=== PATIENT | female | born 1970 | race Caucasian/White ===

== ENCOUNTER 2019-09-13 17:22 | Emergency (ER) | payer SELFPAY ==
[2019-09-13] MEDS ORDERED: Metoprolol Tartrate 50 MG Tab PO ONE (17:59)
--- NOTE | 2019-09-13 18:49 | EDM.PDOC ---
ED HPI GENERAL MEDICAL PROBLEM - General Chief Complaint: Cardiovascular Problem Stated Complaint: HIGH BP Time Seen by Provider: 09/13/19 17:38 Source of Information: Reports: Patient History Limitations: Reports: No Limitations - History of Present Illness INITIAL COMMENTS - FREE TEXT/NARRATIVE: The patient was sent over from the walk in clinic for a headache and elevated blood pressure. She saw her doctor in July and her blood pressure was doing good so she took her off her medication. She developed a headache 2 days ago. She went to the walk in clinic and her BP was 200/100. She also has some tightness in her chest. She has some tingling in the right arm but she will get that at times. 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 She has no fever, chills, cough, congestion, runny nose, blurred vision or double vision. She has no other health problems. She has no abdominal pain, nausea or vomiting. She has no numbness or weakness. Onset: Gradual Duration: Day(s): Location: Reports: Head, Chest Quality: Reports: Pressure Severity: Mild Improves with: Reports: None Worsens with: Reports: None Associated Symptoms: Reports: Chest Pain, Headaches. Denies: Cough, Fever/ Chills, Nausea/Vomiting, Shortness of Breath Frontal Headache Pain Score (Numeric/FACES): 7 - Related Data Allergies Allergy/AdvReac Type Severity Reaction Status Date / Time No Known Allergies Allergy Verified 09/13/19 17:40 Home Meds: Home Meds Doxycycline [Vibramycin] 50 mg PO BID 09/13/19 [History] Metoprolol Succinate 50 mg PO DAILY #30 tab.er.24h 09/13/19 [Rx] traZODone HCl [Trazodone HCl] 100 mg PO BEDTIME PRN 09/13/19 [History] Past Medical History Neurological History: Reports: Other (See Below) Other Neuro History: insomnnia- Other Dermatologic History: roseia Social & Family History - Tobacco Use Smoking Status *Q: Never Smoker - Caffeine Use Caffeine Use: Reports: Coffee - Recreational Drug Use Recreational Drug Use: No ED ROS GENERAL - Review of Systems Review Of Systems: See Below Constitutional: Reports: No Symptoms HEENT: Reports: No Symptoms Respiratory: Reports: No Symptoms Cardiovascular: Reports: Chest Pain Endocrine: Reports: No Symptoms GI/Abdominal: Reports: No Symptoms : Reports: No Symptoms Musculoskeletal: Reports: No Symptoms Neurological: Reports: Headache ED EXAM, GENERAL - Physical Exam Exam: See Below Exam Limited By: No Limitations General Appearance: Alert, No Apparent Distress Ears: Normal External Exam Nose: Normal Inspection Head: Atraumatic, Normocephalic Neck: Normal Inspection, Supple, Non-Tender Respiratory/Chest: No Respiratory Distress, Lungs Clear, Normal Breath Sounds Cardiovascular: Regular Rate, Rhythm, No Edema, No Murmur GI/Abdominal: Soft, Non-Tender, No Organomegaly, No Mass Back Exam: Normal Inspection Extremities: Normal Inspection EKG INTERPRETATION EKG Date: 09/13/19 Time: 18:10 Rhythm: NSR Rate (Beats/Min): 71 [place]: Normal P-Wave: Present QRS: Normal ST-T: Normal QT: Normal EKG Interpretation Comments: Q waves in the anterior leads Course - Vital Signs Last Recorded V/S: Last Vital Signs Temp 98.1 F 09/13/19 17:44 Pulse 71 09/13/19 18:11 Resp 20 09/13/19 17:44 BP 196/114 H 09/13/19 18:11 Pulse Ox 98 09/13/19 17:44 - Orders/Labs/Meds Orders: Active Orders 24 hr Category Date Time Status Cardiac Monitoring [RC] . DIRECTED Care 09/13/19 17:58 Active EKG Documentation Completion [RC] STAT Care 09/13/19 17:59 Active Labs: Laboratory Tests 09/13/19 09/13/19 Range/Units 18:05 18:06 WBC 5.50 (3.98-10.04) K/mm3 RBC 4.73 (3.98-5.22) M/mm3 Hgb 14.8 (11.2-15.7) gm/dl Hct 43.4 (34.1-44.9) % MCV 91.8 (79.4-94.8) fl MCH 31.3 (25.6-32.2) pg MCHC 34.1 (32.2-35.5) g/dl RDW Std Deviation 40.1 (36.4-46.3) fL Plt Count 253 (182-369) K/mm3 MPV 9.6 (9.4-12.3) fl Neut % (Auto) 58.5 (34.0-71.1) % Lymph % (Auto) 25.3 (19.3-51.7) % [place] % (Auto) 10.5 (4.7-12.5) % Eos % (Auto) 4.4 (0.7-5.8) Baso % (Auto) 1.1 (0.1-1.2) % Neut # (Auto) 3.22 (1.56-6.13) K/mm3 Lymph # (Auto) 1.39 (1.18-3.74) K/mm3 [place] # (Auto) 0.58 H (0.24-0.36) K/mm3 Eos # (Auto) 0.24 (0.04-0.36) K/mm3 Baso # (Auto) 0.06 (0.01-0.08) K/mm3 Sodium 140 (136-145) mEq/L Potassium 3.6 (3.5-5.1) mEq/L Chloride 100 (98-107) mEq/L Carbon Dioxide 29 (21-32) mEq/L Anion Gap 14.6 (5-15) BUN 14 (7-18) mg/dL Creatinine 0.7 (0.55-1.02) mg/dL Est Cr Clr Drug Dosing 76.89 mL/min Estimated GFR (MDRD) > 60 (>60) mL/min BUN/Creatinine Ratio 20.0 H (14-18) Glucose 97 (74-106) mg/dL Calcium 9.7 (8.5-10.1) mg/dL Total Bilirubin 0.4 (0.2-1.0) mg/dL AST 25 (15-37) U/L ALT 45 (14-59) U/L Alkaline Phosphatase 72 (46-116) U/L Troponin I < 0.017 (0.00-0.056) ng/mL Total Protein 7.7 (6.4-8.2) g/dl Albumin 4.1 (3.4-5.0) g/dl Globulin 3.6 gm/dL Albumin/Globulin Ratio 1.1 (1-2) Meds: Medications Discontinued Medications Generic Name Dose Route Start Last Admin Trade Name Freq PRN Reason Stop Dose Admin Metoprolol Tartrate 50 mg 09/13/19 17:59 09/13/19 18:11 Lopressor PO 09/13/19 18:00 50 mg ONETIME ONE Administration - Re-Assessments/Exams Free Text/Narrative Re-Assessment/Exam: 09/13/19 18:49 I ordered metoprolol 50mg PO, EKG, CT of her head and labs. 09/13/19 18:56 Her CBC and CMP look good. Her troponin is negative. The CT of her head looks good. Her blood pressure is better. I will get her on metoprolol succinate. Departure - Departure Time of Disposition: 19:00 Disposition: Home, Self-Care 01 Condition: Good Clinical Impression: Atypical chest pain Hypertension Qualifiers: Hypertension type: essential hypertension Qualified Code(s): I10 - Essential ( primary) hypertension Headache Qualifiers: Headache type: unspecified Headache chronicity pattern: acute headache Intractability: not intractable Qualified Code(s): R51 - Headache Prescriptions: Metoprolol Succinate 50 mg PO DAILY #30 tab.er.24h Referrals: Tasneem Morataya PA-C [Primary Care Provider] - 1 Week Forms: ED Department Discharge Additional Instructions: Take the metoprolol daily. Take tylenol or motrin for the headache. Please return if you are worse. Sepsis Event Note - Evaluation Sepsis Screening Result: No Definite Risk - Focused Exam Vital Signs: Vital Signs Temp Pulse Pulse Resp BP BP Pulse Ox 09/13/19 18:11 71 196/114 H 09/13/19 17:44 98.1 F 68 20 186/107 H 98 Date Exam was Performed: 09/13/19 Time Exam was Performed: 18:56 - My Orders Last 24 Hours: My Active Orders 09/13/19 17:58 Cardiac Monitoring [RC] . DIRECTED 09/13/19 17:59 EKG Documentation Completion [RC] STAT - Assessment/Plan Last 24 Hours: My Active Orders 09/13/19 17:58 Cardiac Monitoring [RC] . DIRECTED 09/13/19 17:59 EKG Documentation Completion [RC] STAT
--- NOTE | 2019-09-13 18:51 | CT ---
Head CT Technique: Multiple axial sections through the brain were obtained. Intravenous contrast was not utilized. Comparison: No prior intracranial imaging is available. Findings: Ventricles along with basal cisterns and sulci the convexities appear within normal limits for the patient's age. No abnormal parenchymal densities are seen. No evidence of intracranial hemorrhage. No midline shift or mass effect is seen. Bone window settings were reviewed. Mastoid sinuses show nothing acute. Visualized paranasal sinuses show nothing acute. No acute calvarial abnormality is appreciated. Impression: 1. Nothing acute is appreciated on noncontrast head CT study. Diagnostic code #1 This report was dictated in [place] Standard Time
== END 2019-09-13 19:14 | disposition home or self-care (01) ==
LOC: SUPCPDRO 17:22 → JD.ED 17:22
DX: R07.89 Other chest pain (principal); I10 Essential (primary) hypertension; R51 Headache
CPT/HCPCS: 36415; 70450; 80053; 84484; 85025; 93005; 99284; A9270; 93010

== ENCOUNTER 2021-08-30 22:52 | Emergency (ER) | payer BC, OTHER ==
[2021-08-30] MEDS ORDERED: Aspirin 81 MG Tab.Chew PO ONE (23:08)
[2021-08-30] MEDS ORDERED: Sodium Chloride 0.9% 10 ML Syringe FLUSH PRN (23:08)
--- NOTE | 2021-08-31 00:29 | EDM.PDOC ---
ED HPI GENERAL MEDICAL PROBLEM - General Chief Complaint: Chest Pain Stated Complaint: CHEST PAIN/HIGH BLOOD PRESSURE Time Seen by Provider: 08/30/21 23:45 Source of Information: Reports: Patient History Limitations: Reports: No Limitations - History of Present Illness INITIAL COMMENTS - FREE TEXT/NARRATIVE: This 51-year-old female with a history of high blood pressure presenting with a chief complaint of chest pain. Onset of chest pain was approximately 1 hour prior to arrival. Patient states the pain was in the middle of her chest and described as a pounding sensation. She was also feeling some pounding in her head. Onset was at rest. She denies any symptoms over the past few days. And is generally been feeling well. After the symptoms started, she checked her blood pressure and found to be extremely high. She took a dose of her metoprolol extended release which she does not take on a regular basis. She now feels symptoms are mostly subsided. Chest Pain Score (Numeric/FACES): 6 - Related Data Allergies Allergy/AdvReac Type Severity Reaction Status Date / Time No Known Allergies Allergy Verified 08/30/21 23:05 Home Meds: Home Meds Metoprolol Succinate 50 mg PO DAILY #30 tab.er.24h 09/13/19 [Rx] Past Medical History Cardiovascular History: Reports: Hypertension [employer]ST History: Reports: Neurological History: Reports: Other (See Below) Other Neuro History: insomnnia- Other Dermatologic History: roseia - Infectious Disease History Infectious Disease History: Reports: Novel Coronavirus - Past Surgical History Female Surgical History: Reports: Hysterectomy Social & Family History - Tobacco Use Tobacco Use Status *Q: Never Tobacco User Second Hand Smoke Exposure: No - Caffeine Use Caffeine Use: Reports: Coffee - Recreational Drug Use Recreational Drug Use: No ED ROS GENERAL - Review of Systems Review Of Systems: See Below Free Text/Narrative/Comment: In addition to that documented in the HPI above, the additional ROS was obtained: Constitutional: Denies fevers or chills Eyes: Denies vision changes ENMT: Denies sore throat CV: Per HPI Resp: Denies SOB GI: Denies vomiting or diarrhea : Denies painful urination MSK: Denies recent trauma Skin: Denies new rashes Neuro: Denies new numbness or tingling or weakness Endocrine: Denies unexpected weight loss Heme: Denies bleeding disorders ED EXAM, GENERAL - Physical Exam Exam: See Below Free Text/Narrative:: I have reviewed the triage vital signs Const: Well nourished, well developed, appears stated age Eyes: Pupils Equal and reactive to light bilaterally, no conjunctival injection HENT: No signs of trauma or swelling, Neck supple without meningismus CV: Regular Rate Rhythm, Warm, well-perfused extremities RESP: Unlabored respiratory effort MSK: No gross deformities appreciated Skin: Warm, dry. No rashes Neuro: Alert, chemist food II-XII grossly intact. Sensation and motor function of extremities grossly intact. Psych: Appropriate mood and affect. #1 Interpretation EKG Date: 08/30/21 Time: 23:25 Rhythm: NSR Rate (Beats/Min): 84 [place]: Normal P-Wave: Present QRS: Normal ST-T: Other (Q waves present in leads III, aVF, V3 through V6.) QT: Normal Comparison: No Change EKG Interpretation Comments: Abnormal EKG. No change from prior. Course - Vital Signs Last Recorded V/S: Last Vital Signs Temp 36.1 C 08/30/21 23:03 Pulse 80 08/30/21 23:03 Resp 18 08/30/21 23:03 BP 193/103 H 08/30/21 23:03 Pulse Ox 99 08/30/21 23:03 - Orders/Labs/Meds Orders: Active Orders 24 hr Category Date Time Status Cardiac Monitoring [RC] . DIRECTED Care 08/30/21 23:08 Active Communication Order [RC] ASDIRECTED Care 08/30/21 23:08 Active Communication Order [RC] ASDIRECTED Care 08/30/21 23:08 Active Oxygen Therapy [RC] ASDIRECTED Care 08/30/21 23:08 Active Peripheral IV Care [RC] . DIRECTED Care 08/30/21 23:09 Active Chest 1V Frontal [CR] Stat Exams 08/30/21 23:08 Taken Sodium Chloride 0.9% [Saline Flush] Med 08/30/21 23:08 Active 10 ml FLUSH ASDIRECTED PRN Peripheral IV Insertion Adult [OM.PC] Stat Oth 08/30/21 23:08 Ordered Medication Orders Sodium Chloride (Sodium Chloride 0.9% 10 Ml Syringe) 10 ml FLUSH ASDIRECTED PRN PRN Reason: Keep Vein Open Labs: Laboratory Tests 08/30/21 08/30/2121 Range/Units 23:38 23:38 23:53 WBC 5.45 (3.98-10.04) K/mm3 RBC 4.41 (3.98-5.22) M/mm3 Hgb 14.4 (11.2-15.7) gm/dl Hct 43.0 (34.1-44.9) % MCV 97.5 H D (79.4-94.8) fl MCH 32.7 H (25.6-32.2) pg MCHC 33.5 (32.2-35.5) g/dl RDW Std Deviation 41.6 (36.4-46.3) fL Plt Count 225 (182-369) K/mm3 MPV 9.8 (9.4-12.3) fl Neut % (Auto) 51.0 (34.0-71.1) % Lymph % (Auto) 31.9 (19.3-51.7) % [place] % (Auto) 9.5 (4.7-12.5) % Eos % (Auto) 5.9 H (0.7-5.8) Baso % (Auto) 1.5 H (0.1-1.2) % Neut # (Auto) 2.78 (1.56-6.13) K/mm3 Lymph # (Auto) 1.74 (1.18-3.74) K/mm3 [place] # (Auto) 0.52 H (0.24-0.36) K/mm3 Eos # (Auto) 0.32 (0.04-0.36) K/mm3 Baso # (Auto) 0.08 (0.01-0.08) K/mm3 PT 9.8 (9.7-12.0) SECONDS INR < 0.93 Sodium 140 (136-145) mEq/L Potassium 3.7 (3.5-5.1) mEq/L Chloride 101 (98-107) mEq/L Carbon Dioxide 25 (21-32) mEq/L Anion Gap 17.7 H (5-15) BUN 9 (7-18) mg/dL Creatinine 0.6 (0.55-1.02) mg/dL Est Cr Clr Drug Dosing 87.73 mL/min Estimated GFR (MDRD) > 60 (>60) mL/min BUN/Creatinine Ratio 15.0 (14-18) Glucose 109 H (70-99) mg/dL Calcium 8.2 L D (8.5-10.1) mg/dL Magnesium 1.7 L (1.8-2.4) mg/dL Total Bilirubin 0.3 (0.2-1.0) mg/dL AST 57 H (15-37) U/L ALT 88 H (14-59) U/L Alkaline Phosphatase 111 (46-116) U/L Troponin I < 0.017 (0.00-0.056) ng/mL Total Protein 7.0 (6.4-8.2) g/dl Albumin 3.6 (3.4-5.0) g/dl Globulin 3.4 gm/dL Albumin/Globulin Ratio 1.1 (1-2) Meds: Medications Generic Name Dose Route Start Last Admin Trade Name Freq PRN Reason Stop Dose Admin Sodium Chloride 10 ml 08/30/21 23:08 Sodium Chloride 0.9% 10 Ml Syringe FLUSH ASDIRECTED PRN Keep Vein Open Discontinued Medications Generic Name Dose Route Start Last Admin Trade Name Freq PRN Reason Stop Dose Admin Aspirin 324 mg 08/30/21 23:08 08/30/21 23:34 Aspirin 81 Mg Tab.Chew PO 08/30/21 23:09 324 mg ONETIME ONE Administration Departure - Departure Time of Disposition: 00:28 Disposition: Home, Self-Care 01 Clinical Impression: Chest pain Instructions: Nonspecific Chest Pain, Adult Forms: ED Department Discharge Additional Instructions: Please follow-up with your primary care physician as soon as possible for blood pressure management. You should return to the emergency room should symptoms return or you have any other emergent concerns. Sepsis Event Note (ED) - Focused Exam Vital Signs: Vital Signs Temp Pulse Resp BP Pulse Ox 08/30/21 23:03 36.1 C 80 18 193/103 H 99 - My Orders Last 24 Hours: My Active Orders 08/30/21 23:08 Cardiac Monitoring [RC] . DIRECTED Communication Order [RC] ASDIRECTED Communication Order [RC] ASDIRECTED Oxygen Therapy [RC] ASDIRECTED Chest 1V Frontal [CR] Stat Sodium Chloride 0.9% [Saline Flush] 10 ml FLUSH ASDIRECTED PRN Peripheral IV Insertion Adult [OM.PC] Stat 08/30/21 23:09 Peripheral IV Care [RC] . DIRECTED - Assessment/Plan Last 24 Hours: My Active Orders 08/30/21 23:08 Cardiac Monitoring [RC] . DIRECTED Communication Order [RC] ASDIRECTED Communication Order [RC] ASDIRECTED Oxygen Therapy [RC] ASDIRECTED Chest 1V Frontal [CR] Stat Sodium Chloride 0.9% [Saline Flush] 10 ml FLUSH ASDIRECTED PRN Peripheral IV Insertion Adult [OM.PC] Stat 08/30/21 23:09 Peripheral IV Care [RC] . DIRECTED Assessment:: Patient is a 51-year-old female presented to the emergency room with chest pain. Patient had unremarkable ER course. Initial EKG is abnormal but unchanged from prior. Broad differential diagnosis considered for this patient include pulmonary embolism, ACS, aortic dissection. Initial laboratory studies do not demonstrate a significantly abnormal. Patient has no major PE risk factors. Suspicion for PE is extremely low. No evidence of widened mediastinum or focal abnormalities on patient's chest x-ray. I informed her of these results and recommended repeat troponin and EKG testing within a few hours. I informed her that until we could do this we have not definitively ruled out acute coronary syndrome. Patient states she does not want a wait and is willing to accept risks of heart attack, permanent disability and even . Patient is not demonstrating any evidence of intoxication or other things that would impair decision-making. Patient will be discharged in stable condition at this time.
--- NOTE | 2021-08-31 10:28 | CR ---
Chest: Portable view of the chest was obtained. Comparison: No prior chest imaging is available. Heart size and mediastinum are normal. Lungs are clear with no acute parenchymal change. Prior cervical spine surgery is noted. No acute osseous abnormality is otherwise seen. Impression: 1. Prior cervical spine surgery. 2. Nothing acute is appreciated on portable chest x-ray. Diagnostic code #2
== END 2021-08-31 00:45 | disposition home or self-care (01) ==
LOC: JD.ED 22:52
DX: R07.9 Chest pain, unspecified (principal); I10 Essential (primary) hypertension; Z86.16 Personal history of COVID-19
CPT/HCPCS: 36415; 71045; 80053; 83735; 84484; 85025; 85610; 93005; 99285; A9270; 93010; 99284